=== PATIENT | male | born 1960 | race Caucasian/White ===

== ENCOUNTER 2016-05-18 13:22 | Inpatient (IN) ==
--- NOTE | 2016-05-18 07:47 | Discharge Summary ---
<MarcinCarmella Ruth - Last Filed: 05/18/16 10:01> Date of Encounter: 05/18/16 - Discharge Diagnosis (1) Arthritis of right hip Priority: Primary Status: Acute (2) Lumbar radiculopathy Priority: Secondary Status: Chronic (3) Lumbar stenosis Priority: Secondary Status: Chronic - Discharge Medications Home Medications: Finasteride [Proscar] 5 mg PO QPM 01/14/16 [History] Lisinopril-HCTZ 10-12.5 [Prinzide 10-12.5] 1 tab PO QAM 01/14/16 [History] Loratadine [Claritin] 10 mg PO DAILY 01/14/16 [History] Meloxicam [Mobic] 15 mg PO DAILY 01/14/16 [History] Pantoprazole Sodium [Protonix] 40 mg PO QAM 01/14/16 [History] Tamsulosin HCl [Flomax] 0.4 mg PO QPM 01/14/16 [History] Ascorbate Calcium [Vitamin C] 500 mg PO DAILY 05/18/16 [History] Aspirin Enteric Coated [Aspirin EC] 325 mg PO DAILY #21 tablet. 05/18/16 [Rx] Aspirin [Lo-Dose Aspirin EC] 81 mg PO DAILY 05/18/16 [History] Glucosamn/Condroitn/C/Mn/[place] [[facility] Glucosamine Chondroitin Tb] 1 tab PO DAILY 05/18/16 [History] Multivitamin [Multivitamins] 1 cap PO DAILY 05/18/16 [History] [place]-3/Dha/Epa/Fish Oil [Fish Oil 1,000 mg Softgel] 1,000 mg PO DAILY 05/18/16 [History] OxyCODONE Immed Rel [Roxicodone 5 MG] 5 - 10 mg PO Q6HR PRN #40 tablet 05/18/16 [Rx] Tramadol HCl [Ultram] 50 - 100 mg PO Q6H PRN 05/18/16 [History] Allergies/Adverse Reactions: Allergies No Known Allergies Allergy (Verified 05/18/16 14:27) Primary care physician: Kenyatta Salas CNP - Patient Status Disposition: Home, Self-Care Condition: Good - Discharge Instructions Follow Up With: Kenyatta Salas CNP [Primary Care Provider] - Additional Instructions: Discharge Instructions: Total Hip Replacement Please call [facility] ([phone]), your Primary Care Physician, or report to the Emergency Room if you have any of the following symptoms: Nausea, vomiting, fever greater that 101.5, swelling, chest pain, shortness of breath, increased pain/redness/drainage/odor for your incision site, numbness/ tingling, or any other concerning symptoms. ACTIVITY:Weight-bearing as tolerated for 8 weeks with hip dislocation precautions that physical therapy taught you. You may progress as tolerated under the guidance of your physical therapist. You do not need to sleep with a pillow between your legs. You can also seep on the operative side or on your stomach. MEDICATIONS: Upon discharge resume your home medications. Take all the medications as prescribed. Take a stool softener if taking narcotic pain medications. Stool softeners are only effective if you drink enough fluids. Drink 6-8 glass of water or fluids a day, unless this is not allowed for another health problem. Despite using stool softeners, if you haven't had a bowel movement in 3 days, please switch to a gentle laxative. Gentle laxatives are sold over the counter. You should have a bowel movement within 24 hours, if not call the office. You will be discharged from the hospital with a prescription for pain medication. You are encouraged to decrease the use of narcotic pain medication as tolerated. Should you require a refill, please call the office. [facility] prescribes narcotic pain medication for only 4-6 weeks after surgery. If you require pain medication beyond this time periord, you may be referred to your Primary Care Physician or to the Pain Clinic for further evaluation. Plan ahead for refills on pain medication as many narcotics either need to be picked up at the office or mailed. It is best to call 48-72 hours in advance of needing a prescription refill so you don't run out of medication. To help control the post-operative pain, you may take NSAIDs (Aleve,Advil, Motrin, ibuprofen, naprosyn) or Tylenol as prescribed on the bottle in addition to the pain medication. ANTICOAGULATION (blood thinners): Continue your Aspirin, Lovenox or Coumadin as prescribed to help prevent a blood clot in the leg or in the lungs. As long as your incision remains dry and you tolerate the NSAIDs (Aleve, Advil, Motrin, ibuprofen, naprosyn), it is OK to use the NSAIDS while you are taking your anticoagulation medication. Should your incision start to drain, stop the NSAID and contact our office. Common symptoms of blood clot in the legs include: localized pain, swelling, calf tenderness, redness or discoloration of the skin. Blood clot in the lung symptoms include: shortness of breath, rapid pulse, sweating, and chest pain that worsens with deep breathing, coughing up blood, lightheadedness, feelings of anxiety. If you experience any of these symptoms notify your physician immediately, go to the emergency room, or if having trouble breathing, call 911. WOUND CARE: Leave the dressing on for 7 days. You may change the dressing if it is saturated greater than 50%. You can shower but not a tub bath or submerge your incision in water. Wash your hands with antibacterial soap, rinse and dry prior to any wound care. If you have daryn the visiting nurse or rehab facility can remove the stapes 10-14 days after surgery and place steri-strips across the wound. Leave the steri-strips in place until they fall off on their won. You may let water from the shower run on top of the steri-stirips. If you do not have a visiting nurse or rehab facility, you will need to return to the office at 10-14 days for the daryn to be removed. FOLLOW-UP: Please follow up with your surgeon in the orthopedic clinic in 6 weeks from the day of surgery. If you have daryn that need to be removed, you will need to come back to the office in 10-14 days from the day of surgery. - Hospital Course Hospital course: Mr. Martinez is a 55 year old male - Time Spent with Patient Total time spent providing and/or coordinating discharge services: <Ric Petit - Last Filed: 05/20/16 09:48> Date of Encounter: 05/20/16 Time of Encounter: 09:30 - Discharge Diagnosis (1) Morbid obesity with BMI of 45.0-49.9, adult Priority: Secondary Status: Chronic (2) Arthritis of right hip Priority: Primary Status: Acute Primary care physician: Kenyatta Salas CNP - Patient Status Functional capacity at discharge: uses cane/walker Overall status at discharge: patient is progressing back to baseline - Hospital Course Hospital course: Mr. Martinez is a 55 year old male The patient had an uneventful postoperative course. They received antibiotics and physical therapy and were discharged in stable condition. There will follow -up in the office in 2 weeks. ASA for DVT prophylaxis - Time Spent with Patient Total time spent providing and/or coordinating discharge services:
--- NOTE | 2016-05-18 13:42 | History & Physical Report ---
Date of Encounter: 05/18/16 Time of Encounter: 13:41 24 Hour HP Update - Instructions Instructions: If the History and Physical is less than 30 days old and was completed prior to A.M. admission and or procedure and has NOT been updated on calendar day of procedure please complete this update prior to performing procedure. - Update Patient reports changes in Medical Condition: No Changes in assessment/condition: No Changes in Medication: No Preop tests/diagnostics Reviewed: Yes Surgery Remains Indicated: Yes Consent for Planned Operative Procedure(s) Verified: Yes - Pre-Operative Checklist Preoperative Checklist Indicated: No Prophylactic Antibiotic Ordered: Yes Is VTE Prophylaxis Indicated?: Yes
[2016-05-18] MEDS ORDERED: CeFAZolin Pre 2,000 MG/100 ML 2,000 MG/100 ML BAG IVPB ONE (13:56)
[2016-05-18] MEDS: Ringers Solution, Lactated 1,000 ML IVC SCH ×2 (13:59→16:15)
[2016-05-18] MEDS ORDERED: Lidocaine -MPF 2% 2 ML VIAL ONE ×2 (14:17→15:12)
[2016-05-18] MEDS ORDERED: *HR* Midazolam HCl 2 MG/2 ML VIAL ONE ×2 (14:17→15:10)
[2016-05-18] MEDS ORDERED: Ondansetron 4 MG/2 ML VIAL ONE (14:17)
[2016-05-18] MEDS ORDERED: *HR* FentaNYL (PF) 100 MCG/2 ML VIAL ONE ×2 (14:17→15:10)
[2016-05-18] MEDS ORDERED: Dexamethasone 4 MG/ML VIAL ONE (14:17)
[2016-05-18] MEDS ORDERED: *HR* Propofol 200 MG/20 ML VIAL IVP ONE ×2 (14:17→15:11)
[2016-05-18] MEDS ORDERED: Famotidine 20 MG/2 ML VIAL IVP ONE (14:20)
[2016-05-18] MEDS ORDERED: Acetaminophen IV 1,000 MG/100 ML INFUS..BTL IVPB ONE (14:20)
--- NOTE | 2016-05-18 14:24 | Anesthesia Evaluation PreOp ---
Date of Encounter: 05/18/16 Time of Encounter: 14:20 - Past History Planned Operation: Rt Total Hip Replacement Cardiac History: Denies any Significant Hx Pulmonary History: Former smoker DRIVER TRAINEE History: Denies Any Significant HX Other Medical History: GERD, Other (Arthritis, Morbid Obesity) Anesthesia History: No Prior Anesthetic Complications Alcohol Use: none Drug use: none Medications and Allergies Finasteride [Proscar] 5 mg PO DAILY 01/14/16 [History] Lisinopril-HCTZ 10-12.5 [Prinzide 10-12.5] 1 each PO DAILY 01/14/16 [History] Loratadine [Claritin] 10 mg PO DAILY 01/14/16 [History] Meloxicam [Mobic] 15 mg PO DAILY 01/14/16 [History] Pantoprazole Sodium [Protonix] 40 mg PO DAILY 01/14/16 [History] Tamsulosin HCl [Flomax] 0.4 mg PO DAILY 01/14/16 [History] Allopurinol [Zyloprim] 300 mg PO DAILY 03/04/16 [History] OxyCODONE Immed Rel [Roxicodone 5 MG] 5 mg PO Q6HR PRN #60 tablet 03/05/16 [Rx] Aspirin Enteric Coated [Aspirin EC] 325 mg PO DAILY #21 tablet. 05/18/16 [Rx] OxyCODONE Immed Rel [Roxicodone 5 MG] 5 - 10 mg PO Q6HR PRN #40 tablet 05/18/16 [Rx] Allergies No Known Allergies Allergy (Verified 03/04/16 14:07) - Meds/Allergy Pre-op Review Medications Reviewed: Yes Allergies Reviewed: Yes Beta Blockers on Current Med List: No Anesthesia Results - Labs Laboratory Tests 05/11/16 05/11/16 15:06 15:06 Hgb 14.3 Hct 42.5 Plt Count 257 Sodium 139 Potassium 3.7 BUN 19 Creatinine 0.83 - Imaging EKG: report reviewed (Sinus Tach) Anesthesia Exam O2 Sat Height 1.75 m Height 1.75 m Weight 141.521 kg Weight 141.521 kg O2 Sat by Pulse Oximetry 96 Vital Signs Temp Pulse Resp BP Pulse Ox 98.4 F 96 18 116/79 96 05/18/16 14:02 05/18/16 14:02 05/18/16 14:02 05/18/16 14:02 05/18/16 14:02 Height: 5'9 Weight: 306 lbs NPO (# of Hours): MN - HEENT Pupil (Motor): Pupils equal, EOMI Mallampati: III Teeth: Normal Oral Opening: Less than or equal to 3 - DRIVER TRAINEE LOC: Oriented DRIVER TRAINEE Motor: Normal RUE, Normal LUE, Normal RLE, Normal LLE, Normal Face DRIVER TRAINEE Sensory: Normal: RUE, LUE, RLE, LLE, Face - Cardiac Rhythm: Regular Murmur: None JVD: No Carotid Bruit: No - Pulmonary Breath Sounds: bilateral Clear Respiratory Effort: Symmetrical Anesthesia Assess/Plan ASA Score: 3 (MO Gerd) Modified [place] Scale for Level of Consciousness: Cooperative, oriented, and tranquil Anesthetic Plan: General Monitoring Plan: Standard Monitors Recovery Plan: PACU (Discussed GA, agrees to proceed)
[2016-05-18] MEDS ORDERED: *HR* Promethazine 25 MG/ML VIAL IVP PRN (14:27)
[2016-05-18] MEDS ORDERED: *HR* Rocuronium Bromide 50 MG/5 ML VIAL ONE (15:12)
[2016-05-18] MEDS ORDERED: *HR* HYDROmorphone 2 MG/ML SYRINGE ONE (15:46)
[2016-05-18] MEDS ORDERED: EPHEDrine 50 MG/ML VIAL ONE (16:11)
[2016-05-18] MEDS ORDERED: Ketamine *HR* 500 MG/10 ML MDV ONE (16:14)
--- NOTE | 2016-05-18 16:34 | Orthopedic Operative Note ---
Date of procedure: 05/18/16 Pre-op diagnosis: Right hip arthritis Post-op diagnosis: same Procedure: Procedure: Right Total Hip Replacment Estimated blood loss: 300 cc Hardware: Biomet DM Cup: 56 G7 fin cup Femoral size 10 echo full profile lateralized stem Head: +9 head with Ellen Procedural Notes: Morbidly obese challenging exposure, grade 4 arthritic changes femoral head acetabular socket. Operative procedure: The patient was brought to the operating room and placed on the operating room table. After general anesthesia was administered the patient was placed in the lateral decubitus position with the operative leg up. All pressure points were padded appropriately and the head was stabilized in the neutral position. The operative extremity was prepped and draped in the sterile surgical fashion patient received IV antibiotic prior to skin incision. A standard posterior approach is made to the operative hip, the incision was made through the skin and subcutaneous tissue hemostasis was obtained with Bovie cautery. Using careful sharp dissection the fascia was identified and incised exposing the external rotators. The external rotators were released off the greater trochanter and tagged with #2 FiberWire suture. The capsule was T'd open and the hip was brought into internal rotation. Patient noted to have grade 4 arthritic changes femoral head. The femoral neck cut was made at the appropriate level. An anterior capsulotomy was performed for the anterior retractor. Soft tissues removed from the acetabulum. Patient noted to have grade 4 arthritic changes acetabulum. Acetabulum was first reamed medially, and then reamed in 15 degrees of anteversion and 45 degrees off the horizontal. It was reamed up to the appropriate size 56 The appropriate-sized to 6 acetabular cup was impacted in place in 15 degrees of anteversion and 45 degrees off the horizontal. This had good fit and fixation. The hip was brought back in to internal rotation and prepared with the metal box maker followed by the canal finder followed by broaching process in 20 degrees anteversion. It was broached up to the appropriate size 10 The femoral implant was impacted in place in 20 degrees of anteversion. Trial reduction found the hip to be stable with +9 head and Ellen. The trials were removed and the real implants were impacted in place. The hip was reduced, patient had apparent equal leg lengths. The hip had excellent stability with forward flexion to 90 degrees adduction of 30 degrees and internal rotation of 60 degrees. The hip had no shuck. The hips after 2 minutes with a Betadine saline solution. It was irrigated out with 2 L of pulse irrigation. The external rotators were reattached to drill holes in the greater trochanter. Fascia was closed with a running #2 PDS suture. The deep tissue was irrigated and closed deep with #1 PDS suture superficially with 0 PDS suture and skin was closed with Dermabond and skin daryn. The patient was placed in a sterile dressing and abduction pillow. The patient was extubated and transferred to the recovery room in stable condition. Anesthesia: JOSE Surgeon: Ric Petit Developmental Electronics Assembler: Carmella Burch Condition: stable Disposition: PACU
[2016-05-18] MEDS: *HR* HYDROmorphone (PF) 1 MG/ML SYRINGE IVP PRN ×5 (17:05→23:41)
[2016-05-18 17:39] LABS: Hematocrit 40.1 % (37.5-50.1); Hemoglobin 12.8 g/dL (12.9-16.9)
[2016-05-18] MEDS ORDERED: *HR* Enoxaparin 30 MG/0.3 ML SYRINGE SQ SCH (18:00)
[2016-05-18] MEDS ORDERED: Albuterol Neb 1.25 MG/3 ML VIAL IH ONE (18:01)
[2016-05-18] MEDS ORDERED: Temazepam 15 MG CAPSULE PO PRN (18:01)
[2016-05-18] MEDS ORDERED: Ondansetron 4 MG/2 ML VIAL IVP PRN (18:01)
[2016-05-18] MEDS ORDERED: Naloxone 0.4 MG/ML INJ IVP PRN (18:01)
[2016-05-18] MEDS ORDERED: Ringers Solution, Lactated 1,000 ML IVC SCH (18:01)
[2016-05-18] MEDS ORDERED: Sennosides 8.6 MG TABLET PO PRN (18:01)
[2016-05-18] MEDS ORDERED: MOM Conc 10 ML UD.LIQ PO PRN (18:01)
[2016-05-18] MEDS ORDERED: Acetaminophen 325 MG TABLET PO PRN (18:01)
--- NOTE | 2016-05-18 18:12 | Anesthesia Evaluation Post Op ---
Date of Encounter: 05/18/16 Time of Encounter: 18:00 - Vital Signs Vital Signs: Vital Signs/O2 Sat/Glucose, Most Current Temp Pulse Resp BP Pulse Ox 05/18/16 18:04 97.0 F L 87 16 94/74 93 L 05/18/16 17:50 95 18 95/60 94 L 05/18/16 17:40 92 20 92/57 98 05/18/16 17:30 97.4 F L 100 20 94/67 93 L 05/18/16 17:20 107 20 92/74 94 L 05/18/16 17:10 106 20 107/74 100 05/18/16 17:00 97.3 F L 115 20 106/54 98 - Lungs Lungs: Clear Ascult./Percussion - Airway Airway: Non-obstructed - Cardiovascular Regular Rate - Mental Status Mental Status: Alert & Oriented, Answers Appropriately - Pain Pain Scale: 0 - Nausea Vomiting Nausea Vomiting: Not Present - Hydration Hydration: Tolerates oral liquids - Discharge PostOp Status: Transfer Patient to floor
[2016-05-18] MEDS: Ascorbic Acid 500 MG TABLET PO SCH (18:20)
[2016-05-18] MEDS: *HR* OxyCODONE Immed Rel 5 MG TABLET PO PRN (19:21)
[2016-05-18] MEDS: Finasteride 5 MG TABLET PO SCH (20:18)
[2016-05-18] MEDS: ceFAZolin 3,000 MG in D5% in Water 100 ML IVPB SCH (23:30)
[2016-05-19] MEDS: *HR* OxyCODONE Immed Rel 5 MG TABLET PO PRN ×4 (02:22→21:25)
[2016-05-19] MEDS: *HR* HYDROmorphone (PF) 1 MG/ML SYRINGE IVP PRN (04:48)
[2016-05-19] MEDS: *HR* Enoxaparin 30 MG/0.3 ML SYRINGE SQ SCH ×2 (05:52→17:12)
[2016-05-19 06:02] LABS: Hematocrit 36.7 % (37.5-50.1); Hemoglobin 12.1 g/dL (12.9-16.9)
[2016-05-19 06:12] LABS: BUN/Creatinine Ratio 18 (6-26); Blood Urea Nitrogen 13 mg/dL (8-26); Calcium 8.7 mg/dL (8.6-10.8); Carbon Dioxide 23 mEq/L (19-29); Chloride 103 mEq/L (98-109); Glucose 146 mg/dL (70-99); Osmolality,Calculated 283 (280-300); Potassium 4.3 mEq/L (3.5-4.5); Sodium 135 mEq/L (136-145); eGFR For African Americans > 60 (> 60); eGFR For Non-African Americans > 60 (> 60)
--- NOTE | 2016-05-19 06:24 | Orthopedics Progress Note ---
Date of Encounter: 05/19/16 Time of Encounter: 06:24 - Assessment and Plan (1) Morbid obesity with BMI of 45.0-49.9, adult Current Visit: Yes Status: Chronic (2) Arthritis of right hip Current Visit: Yes Status: Acute Subjective Interval history: Patient was seen this morning doing well without complaints. Afebrile vital signs stable. Operative extremity: Neurovascularly intact Dressing clean dry and intact Calves nontender Assessment and plan: Continue with postoperative care Hematocrit 36 Objective Vital signs: Vital Signs Temp Pulse Resp BP Pulse Ox 05/19/16 04:00 97.7 F 73 16 101/78 97 05/18/16 23:35 97.7 F 88 15 103/74 95 05/18/16 21:44 97.4 F L 78 15 98/74 95 05/18/16 21:11 18 98 05/18/16 20:26 97.9 F 85 15 92/60 96 05/18/16 19:20 97.4 F L 65 15 94/55 94 L 05/18/16 18:39 97.3 F L 90 14 95/72 94 L 05/18/16 18:04 97.0 F L 87 16 94/74 93 L 05/18/16 17:50 95 18 95/60 94 L 05/18/16 17:40 92 20 92/57 98 05/18/16 17:30 97.4 F L 100 20 94/67 93 L 05/18/16 17:20 107 20 92/74 94 L 05/18/16 17:10 106 20 107/74 100 05/18/16 17:00 97.3 F L 115 20 106/54 98 05/18/16 14:02 98.4 F 96 18 116/79 96 Intake and Output 05/18/16 05/18/16 05/19/16 15:59 23:59 07:59 Intake Total 1110 / 1110 100 / 100 Output Total 300 / 300 1100 / 1100 Balance 810 / 810 -1000 / -1000 Intake: IV Fluids 1100 / 1100 100 / 100 Lactated Ringers 1,000 ML 1000 / 1000 @ 25 mls/hr IVC .Q24H RON Rx#:[id number] Ancef 3,000 MG In 100 / 100 Dextrose 5% 100 ML @ 200 mls/hr IVPB Q8H RON Rx#: [id number] Ancef Premix 2,000 MG/100 100 / 100 ML 2,000 mg In 100 ml @ 200 mls/hr IVPB PREOP ONE Rx#:[id number] Oral Output: Urine 1100 / 1100 Estimated Blood Loss 300 / 300 Other: # Voids 1 Weight 141.521 kg - Labs CBC & BMP: 05/19/16 05:38 05/19/16 05:38 Labs: Abnormal lab results Hgb 12.1 g/dL (12.9-16.9) L 05/19/16 05:38 Hct 36.7 % (37.5-50.1) L 05/19/16 05:38 Sodium 135 mEq/L (136-145) L 05/19/16 05:38 Glucose 146 mg/dL (70-99) H 05/19/16 05:38 - VTE Documentation of Mechanical Device: Venous foot pump, device Consult Discharge Plan - Plan Referrals: Kenyatta Salas, COMPLETIONS ENGINEER [Primary Care Provider] -
[2016-05-19] MEDS: Ascorbic Acid 500 MG TABLET PO SCH ×2 (08:20→17:12)
[2016-05-19] MEDS: ceFAZolin 3,000 MG in D5% in Water 100 ML IVPB SCH (08:24)
[2016-05-19] MEDS ORDERED: Multivit/Ca/Min/Fe/FA 1 TAB TABLET PO SCH (09:00)
[2016-05-19] MEDS: Ibuprofen 800 MG TABLET PO PRN (10:33)
[2016-05-19] MEDS: Finasteride 5 MG TABLET PO SCH (21:25)
[2016-05-20] MEDS: *HR* OxyCODONE Immed Rel 5 MG TABLET PO PRN ×2 (04:13→08:21)
[2016-05-20] MEDS: *HR* Enoxaparin 30 MG/0.3 ML SYRINGE SQ SCH (05:48)
[2016-05-20 06:30] LABS: Hematocrit 35.4 % (37.5-50.1); Hemoglobin 11.2 g/dL (12.9-16.9)
[2016-05-20 06:35] VITALS: BP 128/84
[2016-05-20 06:45] LABS: BUN/Creatinine Ratio 16 (6-26); Blood Urea Nitrogen 12 mg/dL (8-26); Calcium 8.7 mg/dL (8.6-10.8); Carbon Dioxide 27 mEq/L (19-29); Chloride 104 mEq/L (98-109); Glucose 102 mg/dL (70-99); Osmolality,Calculated 288 (280-300); Potassium 4.1 mEq/L (3.5-4.5); Sodium 139 mEq/L (136-145); eGFR For African Americans > 60 (> 60); eGFR For Non-African Americans > 60 (> 60)
[2016-05-20] MEDS: Ibuprofen 800 MG TABLET PO PRN (08:21)
[2016-05-20] MEDS ORDERED: PANTOPRAZOLE 40 MG PO SCH (09:00)
--- NOTE | 2016-05-20 09:48 | Orthopedics Progress Note ---
Date of Encounter: 05/20/16 Time of Encounter: 09:48 - Assessment and Plan (1) Morbid obesity with BMI of 45.0-49.9, adult Current Visit: Yes Status: Chronic (2) Arthritis of right hip Current Visit: Yes Status: Acute Subjective Interval history: Patient was seen this morning doing well without complaints. Afebrile vital signs stable. Operative extremity: Neurovascularly intact Dressing clean dry and intact Calves nontender Assessment and plan: Continue with postoperative care Hematocrit 35 discharged today Objective Vital signs: Vital Signs Temp Pulse Resp BP Pulse Ox 05/20/16 06:34 98.1 F 117 20 128/84 93 L 05/20/16 00:33 98.0 F 99 17 114/74 93 L 05/19/16 21:11 98.3 F 100 16 114/74 92 L 05/19/16 15:50 95 05/19/16 15:14 98.5 F 98 18 120/78 99 05/19/16 11:24 98.1 F 101 18 120/80 96 Intake and Output 05/19/16 05/20/16 05/20/16 23:59 07:59 15:59 Intake Total 120 / 120 Output Total 600 / 600 625 / 625 Balance -600 / -600 -625 / -625 120 / 120 Intake: Oral 120 / 120 Output: Urine 600 / 600 625 / 625 Other: Meal Breakfast Percent of Meal Consumed 50% # Voids 1 - Labs CBC & BMP: 05/20/16 06:04 05/20/16 06:04 Labs: Abnormal lab results Hgb 11.2 g/dL (12.9-16.9) L 05/20/16 06:04 Hct 35.4 % (37.5-50.1) L 05/20/16 06:04 Glucose 102 mg/dL (70-99) H 05/20/16 06:04 - VTE Documentation of Mechanical Device: Venous foot pump, device Consult Discharge Plan - Plan Additional Instructions: Discharge Instructions: Total Hip Replacement Please call [facility] ([phone]), your Primary Care Physician, or report to the Emergency Room if you have any of the following symptoms: Nausea, vomiting, fever greater that 101.5, swelling, chest pain, shortness of breath, increased pain/redness/drainage/odor for your incision site, numbness/ tingling, or any other concerning symptoms. ACTIVITY:Weight-bearing as tolerated for 8 weeks with hip dislocation precautions that physical therapy taught you. You may progress as tolerated under the guidance of your physical therapist. You do not need to sleep with a pillow between your legs. You can also seep on the operative side or on your stomach. MEDICATIONS: Upon discharge resume your home medications. Take all the medications as prescribed. Take a stool softener if taking narcotic pain medications. Stool softeners are only effective if you drink enough fluids. Drink 6-8 glass of water or fluids a day, unless this is not allowed for another health problem. Despite using stool softeners, if you haven't had a bowel movement in 3 days, please switch to a gentle laxative. Gentle laxatives are sold over the counter. You should have a bowel movement within 24 hours, if not call the office. You will be discharged from the hospital with a prescription for pain medication. You are encouraged to decrease the use of narcotic pain medication as tolerated. Should you require a refill, please call the office. [facility] prescribes narcotic pain medication for only 4-6 weeks after surgery. If you require pain medication beyond this time periord, you may be referred to your Primary Care Physician or to the Pain Clinic for further evaluation. Plan ahead for refills on pain medication as many narcotics either need to be picked up at the office or mailed. It is best to call 48-72 hours in advance of needing a prescription refill so you don't run out of medication. To help control the post-operative pain, you may take NSAIDs (Aleve,Advil, Motrin, ibuprofen, naprosyn) or Tylenol as prescribed on the bottle in addition to the pain medication. ANTICOAGULATION (blood thinners): Continue your Aspirin, Lovenox or Coumadin as prescribed to help prevent a blood clot in the leg or in the lungs. As long as your incision remains dry and you tolerate the NSAIDs (Aleve, Advil, Motrin, ibuprofen, naprosyn), it is OK to use the NSAIDS while you are taking your anticoagulation medication. Should your incision start to drain, stop the NSAID and contact our office. Common symptoms of blood clot in the legs include: localized pain, swelling, calf tenderness, redness or discoloration of the skin. Blood clot in the lung symptoms include: shortness of breath, rapid pulse, sweating, and chest pain that worsens with deep breathing, coughing up blood, lightheadedness, feelings of anxiety. If you experience any of these symptoms notify your physician immediately, go to the emergency room, or if having trouble breathing, call 911. WOUND CARE: Leave the dressing on for 7 days. You may change the dressing if it is saturated greater than 50%. You can shower but not a tub bath or submerge your incision in water. Wash your hands with antibacterial soap, rinse and dry prior to any wound care. If you have daryn the visiting nurse or rehab facility can remove the stapes 10-14 days after surgery [address] steri-strips across the wound. Leave the steri-strips in place until they fall off on their won. You may let water from the shower run on top of the steri-stirips. If you do not have a visiting nurse or rehab facility, you will need to return to the office at 10-14 days for the daryn to be removed. FOLLOW-UP: Please follow up with your surgeon in the orthopedic clinic in 6 weeks from the day of surgery. If you have daryn that need to be removed, you will need to come back to the office in 10-14 days from the day of surgery. Referrals: Carmella Burch, PAC [Physician Medical Record Assistant] - (FOLLOW UP 05/28/2016 @ 10:45AM [facility] ) Kenyatta Salas, SPECIAL SERVICES AGENT [Primary Care Provider] -
== END 2016-05-20 10:00 | disposition home or self-care (01) | DRG 470 ==
LOC: SAMDAY 13:22 → 3NENU 17:54
PROVIDERS: ADMIT Orthopaedic Surgery; ATTEND Orthopaedic Surgery